=== PATIENT | male | born 2000 | race Two or more races ===

== ENCOUNTER 2021-12-17 07:19 | Emergency (ER) | payer BC, MEDICAID ==
[~2021-12-17] VITALS: Ht 180.3 cm; Wt 61.2 kg
[2021-12-17 07:36] VITALS: BP 110/74
[2021-12-17] MEDS ORDERED: IBUPROFEN 800 MG TAB PO ONE (08:45)
[2021-12-17] MEDS ORDERED: NAPR500T31 PO (08:49)
== END 2021-12-17 09:04 | disposition home or self-care (01) ==
LOC: ER 07:19
DX: S63.91XA Sprain of unspecified part of right wrist and hand, initial encounter (principal); W22.8XXA Striking against or struck by other objects, initial encounter; Y93.89 Activity, other specified; Y92.89 Other specified places as the place of occurrence of the external cause; Y99.8 Other external cause status
CPT/HCPCS: 73130

== ENCOUNTER 2022-01-31 05:37 | Emergency (ER) | payer BC, MEDICAID, OTHER ==
[~2022-01-31] VITALS: Ht 180.3 cm; Wt 63.6 kg
[~2022-01-31 05:37] MED LIST: NAPR500T31 PO
[2022-01-31] MEDS ORDERED: IBUP800T27 PO (08:40)
[2022-01-31] MEDS ORDERED: CYCL-837 PO (08:40)
[2022-01-31 08:44] VITALS: BP 123/73
== END 2022-01-31 08:51 | disposition home or self-care (01) ==
LOC: ER 05:37
DX: S39.012A Strain of muscle, fascia and tendon of lower back, initial encounter (principal); V43.52XA Car driver injured in collision with other type car in traffic accident, initial encounter; Y93.89 Activity, other specified; Y92.410 Unspecified street and highway as the place of occurrence of the external cause; Y99.8 Other external cause status